=== PATIENT | female | born 1985 | race Caucasian/White ===

== ENCOUNTER 2018-01-02 09:57 | Outpatient (CLI) | payer BC ==
--- NOTE | 2018-01-02 11:28 | MRI ---
MRI LEFT WRIST WITHOUT CONTRAST: HISTORY: Pain. Triangular fibrocartilage complex tear, N34.340B. COMPARISON: None. FINDINGS: BONES: No fracture. No malalignment. No significant marrow edema. TENDONS: No significant tenosynovitis. Extensor carpal ulnaris is subluxed of the ulnar groove, likely due to chronic subacute injury. TRIANGULAR FIBROCARTILAGE: There is a central perforation of the triangular fibrocartilage complex near the radial insertion. LIGAMENTS: Scapholunate ligament and lunotriquetral ligaments are intact. Capsular ligaments are intact. MUSCLES: Normal muscle signal and bulk. IMPRESSION: Central perforation of the triangular fibrocartilage near the radial insertion. POS: [facility]
== END 2018-01-02 09:58 | disposition home or self-care (01) ==
LOC: SCSMRI 09:57
PROVIDERS: ATTEND Orthopaedic Surgery Hand Surgery
DX: S63.502A Unspecified sprain of left wrist, initial encounter (principal)